=== PATIENT | female | born 1970 | race Caucasian/White ===

== ENCOUNTER → 2020-06-09 | Outpatient (CLI) | payer BC | LOC: EXRD 10:23 | DX: R60.0 Localized edema (principal) | CPT/HCPCS: 93971 ==

== ENCOUNTER → 2020-11-14 | Outpatient (CLI) | payer BC ==
[~2020-11-14] MED LIST: CENTRUM COMPLE1 EACH PO; MEDROXYPROGESTE10 MG PO; VITAMIN B6 PO; VITAMIN D PO
[2020-11-14 09:15] LABS: HEMOGLOBIN 13.6 gm/dl (12.3-15.3); RED BLOOD COUNT 4.49 M/UL (4.00-5.10); WHITE BLOOD COUNT 10.3 K/UL (4.5-11.0)
== END ==
LOC: OPSV2 07:59
PROVIDERS: Obstetrics & Gynecology
DX: Z01.812 Encounter for preprocedural laboratory examination (principal); N93.9 Abnormal uterine and vaginal bleeding, unspecified
CPT/HCPCS: 81001; 85025

== ENCOUNTER → 2020-12-19 | Day surgery (SDC) | payer BC ==
[~2020-12-19] VITALS: Ht 160 cm; Wt 99.8 kg
[~2020-12-19] MED LIST changes: +COLLAGEN PO; +DOCUSATE SODIU100 MG PO; +HYDROCODON-ACE1 EAC4 PO; +IBUPROFEN800 MG PO
[2020-12-19 06:55] LABS: HEMOGLOBIN 13.5 gm/dl (12.3-15.3); RED BLOOD COUNT 4.43 M/UL (4.00-5.10); WHITE BLOOD COUNT 8.2 K/UL (4.5-11.0)
== END | disposition home or self-care (01) ==
LOC: OR 05:44
PROVIDERS: Obstetrics & Gynecology
DX: N93.9 Abnormal uterine and vaginal bleeding, unspecified (principal); N85.8 Other specified noninflammatory disorders of uterus; E66.01 Morbid (severe) obesity due to excess calories; Z68.39 Body mass index [BMI] 39.0-39.9, adult; Z87.891 Personal history of nicotine dependence; Z79.899 Other long term (current) drug therapy; Z20.822 Contact with and (suspected) exposure to COVID-19
CPT/HCPCS: 36415; 81001; 84702; 85025; 93005; J1100; J2001; J2250; J2405; J2704; J2795; J3010; J7030; J7120; U0002

== ENCOUNTER → 2021-02-26 | Outpatient (CLI) | payer BC | LOC: KOH-I 12:29 | DX: E04.9 Nontoxic goiter, unspecified (principal) | CPT/HCPCS: 76536 ==